=== PATIENT | female | born 1995 | race Hispanic/Latino ===

== ENCOUNTER 2018-11-19 01:35 | Emergency (ER) | payer SELFPAY ==
[2018-11-19 02:22] LABS: Absolute Lymphocytes (CBC) 3.8 K/uL (0.7-4.9); Basophils % 0.2 % (0-1.3); Eosinophils % 1.1 % (0-4.4); Hematocrit 36.2 % (36.0-45.0); MPV 9.6 fL (7.6-11.3); Monocytes % 6.1 % (3.3-12.3); RBC Red Blood Cell Count 5.15 M/uL (3.86-4.86)
[2018-11-19 02:35] LABS: ALT/SGPT 41 U/L (12-78); AST/SGOT 14 U/L (15-37); Albumin 3.4 g/dL (3.4-5.0); Alkaline Phosphatase 145 U/L (45-117); BUN Blood Urea Nitrogen 8 mg/dL (7-18); Bicarbonate 28 mmol/L (21-32); Bilirubin Direct < 0.1 mg/dL (0-0.2); Bilirubin Total 0.1 mg/dL (0.2-1.0); Glucose Level 102 mg/dL (74-106); Lipase 133 U/L (73-393); Potassium 3.5 mmol/L (3.5-5.1); Protein, Total 8.2 g/dL (6.4-8.2); Sodium Level 139 mmol/L (136-145)
[2018-11-19 03:27] LABS: Anisocytosis 1+; Blood Morphology Comment NOTED (NOT SEEN); Hypochromasia 1+; Platelet Estimate ADEQ; Urine White Blood Cell Casts OK
[2018-11-19 03:28] LABS: Urine Blood TRACE (NEG); Urine Glucose NEGATIVE (NEG); Urine Protein NEGATIVE (NEG); Urine Specific Gravity 1.025 (1.005-1.030); Urine pH 6.5 (5.0-7.0)
[2018-11-19] MEDS ORDERED: ONDANSETRON 4 MG/2 ML VIAL ONE (03:30)
[2018-11-19] MEDS ORDERED: MORPHINE 4 MG/ML SYR ONE (03:30)
--- NOTE | 2018-11-19 03:40 | ER ---
Nurse's Notes [facility] Name: Carol Fregoso Age: 23 yrs Sex: Female : 1995 Arrival Date: 11/19/2018 Time: 01:38 Bed 19 [facility] MD: Diagnosis: Unspecified abdominal pain Presentation: 11/19 01:49 Presenting complaint: Patient states: she is having epigastric pain which radiates to bb her left side and lower back which is constant and feels like a burning sensation which is constant she is nauseous but denies vomiting, diarrhea or fever. Transition of care: patient was not received from another setting of care. Onset of symptoms was November 18, 2018 at 19:00. Risk Assessment: Do you want to hurt yourself or someone else? Patient reports no desire to harm self or others. Initial Sepsis Screen: Does the patient meet any 2 criteria? No. Patient's initial sepsis screen is negative. Does the patient have a suspected source of infection? No. Patient's initial sepsis screen is negative. Care prior to arrival: None. 01:49 Method Of Arrival: Ambulatory bb 01:49 Acuity: MIKAYLA 3 bb Triage Assessment: 01:46 General: Appears in no apparent distress. uncomfortable, Behavior is calm, cooperative, cc3 appropriate for age. Pain: Complains of pain in left mid back and epigastric area. GI: Abdomen is round obese. 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 - Social history:: Smoking status: unknown. - Ebola Screening: : No symptoms or risks identified at this time. Screenin:46 Abuse screen: Denies threats or abuse. Denies injuries from another. Nutritional cc3 screening: No deficits noted. Tuberculosis screening: No symptoms or risk factors identified. Fall Risk Ambulatory Aid- None/Bed Rest/Nurse Assist (0 pts). Gait- Normal/Bed Rest/Wheelchair (0 pts) Mental Status- Oriented to own ability (0 pts). Assessment: 01:46 General: Appears in no apparent distress. uncomfortable, Behavior is calm, cooperative, cc3 appropriate for age. Pain: Complains of pain in left mid back and epigastric area. Neuro: Level of Consciousness is awake, alert, obeys commands, Oriented to person, place, time, situation, Appropriate for age. Cardiovascular: Denies chest pain, Capillary refill < 3 seconds Patient's skin is warm and dry. Respiratory: Airway is patent Respiratory effort is even, unlabored, Respiratory pattern is regular, symmetrical. GI: Bowel sounds present X 4 quads. Abd is soft and non tender X 4 quads. : No signs and/or symptoms were reported regarding the genitourinary system. EENT: No signs and/or symptoms were reported regarding the EENT system. Derm: Skin is intact, is healthy with good turgor, Skin is pink, warm \T\ dry. normal. Musculoskeletal: Circulation, motion, and sensation intact. Range of motion: intact in all extremities. 02:15 Reassessment: Patient appears in no apparent distress at this time. Patient and/or cc3 family updated on plan of care and expected duration. Pain level reassessed. Patient is alert, oriented x 3, equal unlabored respirations, skin warm/dry/pink. 03:10 Reassessment: Patient appears in no apparent distress at this time. Patient and/or cc3 family updated on plan of care and expected duration. Pain level reassessed. Patient is alert, oriented x 3, equal unlabored respirations, skin warm/dry/pink. Patient came back from CT scan department, awaiting result. 04:00 Reassessment: Patient appears in no apparent distress at this time. Patient and/or cc3 family updated on plan of care and expected duration. Pain level reassessed. Patient is alert, oriented x 3, equal unlabored respirations, skin warm/dry/pink. LIZZIE Hess discharged the patient home with prescriptions given. IV cannula removed and patient left ER vitally stable and ambulatory with her friend. No valuables left in the patient's room. Patient denies pain at this time. Patient states feeling better. Patient states symptoms have improved. Vital Signs: 01:52 BP 111 / 93; Pulse 77; Resp 16 S; Temp 98.1(O); Pulse Ox 99% on R/A; Weight 136.08 kg bb (R); Height 5 ft. 6 in. (167.64 cm) (R); Pain 10/10; 02:30 BP 128 / 85; Pulse 78; Resp 16 S; Pulse Ox 99% on R/A; cc3 03:50 BP 117 / 87; Pulse 75; Resp 16 S; Pulse Ox 98% on R/A; cc3 01:52 Body Mass Index 48.42 (136.08 kg, 167.64 cm) bb ED Course: 01:38 Patient arrived in ED. es 01:46 Walt Hess NP is PHCP. pm1 01:46 Cresencio Mcgrath MD is Attending Physician. pm1 01:46 Elma Winters is Primary Nurse. cc3 01:46 Patient has correct armband on for positive identification. Bed in low position. Call cc3 light in reach. Side rails up X 1. Pulse ox on. NIBP on. 01:52 Triage completed. bb 01:52 Arm band placed on Patient placed in an exam room, on a stretcher, on pulse oximetry. bb 02:00 Inserted saline lock: 20 gauge in right antecubital area, using aseptic technique. cc3 Blood collected. 03:11 CT Abd/Pelvis - IV Contrast Only In Process Unspecified. EDMS 04:00 No provider procedures requiring assistance completed. IV discontinued, intact, cc3 bleeding controlled, No redness/swelling at site. Pressure dressing applied. Administered Medications: 03:14 Drug: morphine 4 mg Route: IVP; Site: right antecubital; cc3 04:00 Follow up: Response: No adverse reaction; Pain is decreased cc3 03:18 Drug: Zofran 4 mg Route: IVP; Site: right antecubital; cc3 04:00 Follow up: Response: No adverse reaction; Pain is decreased cc3 03:50 Drug: GI Cocktail without - (Maalox Suspension 30 ml, Lidocaine Liquid 2 % 15 cc3 ml) Route: PO; 04:00 Follow up: Response: No adverse reaction; Marked relief of symptoms cc3 Outcome: 03:39 Discharge ordered by . pm1 04:00 Discharged to home ambulatory. cc3 04:00 Condition: stable 04:00 Discharge instructions given to patient, Instructed on discharge instructions, follow up and referral plans. medication usage, Demonstrated understanding of instructions, follow-up care, medications, Prescriptions given X 2. 04:02 Patient left the ED. cc3 Signatures: Dispatcher [employer] Milka Patel Brenda, RN RN bb Walt Hess, LIZZIE TECHNICAL INTERN pm1 Elma Winters cc3
--- NOTE | 2018-11-19 03:40 | EDPHYS ---
Physician Documentation [facility] Name: Carol Fregoso Age: 23 yrs Sex: Female : 1995 Arrival Date: 11/19/2018 Time: 01:38 Bed 19 Private MD: ED Physician Cresencio Mcgrath HPI: 11/19 02:06 This 23 yrs old Female presents to ER via Ambulatory with complaints of pm1 Abdominal Pain, Back Pain. 02:06 The patient presents with abdominal pain in the epigastric area. Onset: The pm1 symptoms/episode began/occurred yesterday, at 19:00. The symptoms radiate to left back. Associated signs and symptoms: Pertinent negatives: nausea, vomiting, and diarrhea, chest pain, constipation, dysuria, fever, shortness of breath. The symptoms are described as burning. Modifying factors: The symptoms are alleviated by nothing, the symptoms are aggravated by food. Severity of pain: in the emergency department the pain is actually worse. The patient has not experienced similar symptoms in the past. The patient has not recently seen a physician. 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 - Social history:: Smoking status: unknown. - Ebola Screening: : No symptoms or risks identified at this time. ROS: 02:06 Constitutional: Negative for fever, chills, and weight loss, Eyes: Negative for injury, pm1 pain, redness, and discharge, ENT: Negative for injury, pain, and discharge, Neck: Negative for injury, pain, and swelling, Cardiovascular: Negative for chest pain, palpitations, and edema, Respiratory: Negative for shortness of breath, cough, wheezing, and pleuritic chest pain. 02:06 : Negative for injury, bleeding, discharge, and swelling, MS/Extremity: Negative for injury and deformity, Skin: Negative for injury, rash, and discoloration, Neuro: Negative for headache, weakness, numbness, tingling, and seizure. 02:06 Abdomen/GI: Positive for abdominal pain, of the epigastric area, Negative for nausea, vomiting, and diarrhea, constipation. 02:06 Back: Positive for radiated pain, of the left mid back. Exam: 02:06 Constitutional: This is a well developed, well nourished patient who is awake, alert, pm1 and in no acute distress. Head/Face: Normocephalic, atraumatic. Neck: Trachea midline, no thyromegaly or masses palpated, and no cervical lymphadenopathy. Supple, full range of motion without nuchal rigidity, or vertebral point tenderness. No Meningismus. Chest/axilla: Normal chest wall appearance and motion. Nontender with no deformity. No lesions are appreciated. Cardiovascular: Regular rate and rhythm with a normal S1 and S2. No gallops, murmurs, or rubs. Normal PMI, no JVD. No pulse deficits. Respiratory: Lungs have equal breath sounds bilaterally, clear to auscultation and percussion. No rales, rhonchi or wheezes noted. No increased work of breathing, no retractions or nasal flaring. 02:06 Back: No spinal tenderness. No costovertebral tenderness. Full range of motion. Skin: Warm, dry with normal turgor. Normal color with no rashes, no lesions, and no evidence of cellulitis. MS/ Extremity: Pulses equal, no cyanosis. Neurovascular intact. Full, normal range of motion. 02:06 Abdomen/GI: Inspection: obese Bowel sounds: normal, Palpation: abdomen is soft and non-tender, in all quadrants, mass, is not appreciated, rebound tenderness, is not appreciated. 02:06 Neuro: Orientation: is normal, Motor: is normal, Sensation: is normal, no obvious gross deficits. Vital Signs: 01:52 BP 111 / 93; Pulse 77; Resp 16 S; Temp 98.1(O); Pulse Ox 99% on R/A; Weight 136.08 kg bb (R); Height 5 ft. 6 in. (167.64 cm) (R); Pain 10/10; 02:30 BP 128 / 85; Pulse 78; Resp 16 S; Pulse Ox 99% on R/A; cc3 03:50 BP 117 / 87; Pulse 75; Resp 16 S; Pulse Ox 98% on R/A; cc3 01:52 Body Mass Index 48.42 (136.08 kg, 167.64 cm) bb MDM: 01:46 Patient medically screened. pm1 02:09 Data reviewed: vital signs. Data interpreted: Pulse oximetry: on room air is 99 %. pm1 Interpretation: normal. 03:39 Counseling: I had a detailed discussion with the patient and/or guardian regarding: the pm1 historical points, exam findings, and any diagnostic results supporting the discharge/admit diagnosis, lab results, radiology results, the need for outpatient follow up, to return to the emergency department if symptoms worsen or persist or if there are any questions or concerns that arise at home. 11/19 01:51 Order name: Basic Metabolic Panel; Complete Time: 03:01 pm1 11/19 01:51 Order name: CBC with Diff; Complete Time: 03:28 pm1 11/19 01:51 Order name: Creatinine for Radiology; Complete Time: 02:32 pm1 11/19 01:51 Order name: Hepatic Function; Complete Time: 03:01 pm1 11/19 01:51 Order name: Lipase; Complete Time: 03:01 pm1 11/19 02:25 Order name: Urine Dipstick--Ancillary (enter results); Complete Time: 03:32 ar5 11/19 01:51 Order name: IV Saline Lock; Complete Time: 02:12 pm1 11/19 01:51 Order name: Labs collected and sent; Complete Time: 02:12 pm11/19 02:25 Order name: Urine --Ancillary (enter results); Complete Time: 03:32 ar5 11/19 02:33 Order name: CT Abd/Pelvis - IV Contrast Only pm1 11/19 03:28 Order name: CBC Smear Scan; Complete Time: 03:28 EDMS 11/19 01:51 Order name: Urine Dipstick-Ancillary (obtain specimen); Complete Time: 02:11 pm1 11/19 01:51 Order name: Urine Test (obtain specimen); Complete Time: 02:11 pm1 Administered Medications: 03:14 Drug: morphine 4 mg Route: IVP; Site: right antecubital; cc3 04:00 Follow up: Response: No adverse reaction; Pain is decreased cc3 03:18 Drug: Zofran 4 mg Route: IVP; Site: right antecubital; cc3 04:00 Follow up: Response: No adverse reaction; Pain is decreased cc3 03:50 Drug: GI Cocktail without - (Maalox Suspension 30 ml, Lidocaine Liquid 2 % 15 cc3 ml) Route: PO; 04:00 Follow up: Response: No adverse reaction; Marked relief of symptoms cc3 Disposition: 22:11 Co-signature as Attending Physician, Cresencio Mcgrath MD. ps1 Disposition: 11/19/18 03:39 Discharged to Home. Impression: Unspecified abdominal pain. - Condition is Stable. - Discharge Instructions: Abdominal Pain, Adult. - Prescriptions for Bentyl 20 mg Oral Tablet - take 1 tablet by ORAL route every 6 hours As needed; 20 tablet. Pepcid 20 mg Oral Tablet - take 1 tablet by ORAL route every 12 hours for 10 days; 20 tablet. - Medication Reconciliation Form, Thank You Letter, Antibiotic Education, Prescription Opioid Use form. - Follow up: Emergency Department; When: As needed; Reason: Worsening of condition. Follow up: Private Physician; When: 2 - 3 days; Reason: Recheck today's complaints, Continuance of care, Re-evaluation by your physician. - Problem is new. - Symptoms have improved. Signatures: Dispatcher [employer] EDMS Danielle Hicks RN RN bb Walt Hess, SHELLS INSPECTOR SHELLS INSPECTOR pm1 Cresencio Mcgrath MD MD ps1 Elma Winters cc3 Corrections: (The following items were deleted from the chart) 04:02 03:39 11/19/2018 03:39 Discharged to Home. Impression: Unspecified abdominal pain. cc3 Condition is Stable. Forms are Medication Reconciliation Form, Thank You Letter, Antibiotic Education, Prescription Opioid Use. Follow up: Emergency Department; When: As needed; Reason: Worsening of condition. Follow up: Private Physician; When: 2 - 3 days; Reason: Recheck today's complaints, Continuance of care, Re-evaluation by your physician. Problem is new. Symptoms have improved. pm1
[2018-11-19] MEDS ORDERED: MAGNE/ALUM HYDROXD 30 ML UCUP ONE (04:02)
--- NOTE | 2018-11-19 10:39 | RAD REPORT ---
EXAM DESCRIPTION: CT - Abdomen Pelvis W Contrast - 11/19/2018 6:46 am CLINICAL HISTORY: The patient is 23 years old and is Female; EPIGASTRIC PAIN TECHNIQUE: Axial computed tomography images of the abdomen and pelvis with intravenous contrast. S agittal and coronal reformatted images were created and reviewed. This CT exam was performed using one or more of the following dose reduction techniques: automated exposure control, adjustment of t he mA and/or kV according to patient size, and/or use of iterative reconstruction technique. COMPARISON: No relevant prior studies available. FINDINGS: LUNG BASES: Unremarkable. No mass. No consolidation. ABDOMEN: LIVER: Unremarkable. No mass. GALLBLADDER AND BILE DUCTS: The gallbladder is distended. No calcified gallstones or ductal dila tation is seen. PANCREAS: No ductal dilation. No mass. SPLEEN: Unremarkable. ADRENALS: Unremarkable. No mass. KIDNEYS AND URETERS: Unremarkable. No solid mass. No hydronephrosis. STOMACH AND BOWEL: The stomach is distended with food contents. The small bowel is normal in liyah iber. Stool is present throughout the colon. There is no mucosal thickening or evidence of bowel obst ruction. PELVIS: APPENDIX: The appendix is normal in caliber without surrounding inflammation. BLADDER: Unremarkable. No mass. REPRODUCTIVE: Unremarkable as visualized. ABDOMEN and PELVIS: INTRAPERITONEAL SPACE: Unremarkable. No free air. No significant fluid collection. BONES/JOINTS: No acute fracture. SOFT TISSUES: The soft tissues are normal. VASCULATURE: Unremarkable. No abdominal aortic aneurysm. LYMPH NODES: Unremarkable. No enlarged lymph nodes. IMPRESSION: No acute findings on this contrasted CT of the abdomen and pelvis to explain the patient 's symptoms. Electronically signed by: Mayra Harvey MD 11/19/2018 3:31 AM CDT Due to temporary technical issues with the PACS/Fluency reporting system, reports are being signed by the in house radiologist as a courtesy to ensure prompt reporting. The interpreting radiologist is f ully responsible for the content of the report.
== END 2018-11-19 04:02 | disposition home or self-care (01) ==
LOC: ER 01:35
DX: R10.9 Unspecified abdominal pain (principal)
CPT/HCPCS: 36415; 74177; 80048; 80076; 81003; 81025; 83690; 85025; 96374; 96375; 99284; J2405; Q9967